=== PATIENT | male | born 1995 | race Caucasian/White ===

== ENCOUNTER 2020-08-28 10:23 | Emergency (ER) | payer OTHER ==
[~2020-08-28] VITALS: Ht 188 cm; Wt 73.8 kg
[2020-08-28 10:23] VITALS: BP 134/71
[2020-08-28 12:05] LABS: HEMATOCRIT 49.6 % (42.0-52.0); HEMOGLOBIN 17.8 g/dl (13.5-17.5); MEAN CORPUSCULAR HEMOGLOBIN 30.1 pg (27.0-33.0); MEAN CORPUSCULAR HGB CONC 35.9 g/dl (32.0-36.5); MEAN CORPUSCULAR VOLUME 83.9 fl (80.0-96.0); PLATELET COUNT, AUTOMATED 149 10^3/uL (150-450); RED BLOOD COUNT 5.91 10^6/uL (4.30-6.10); WHITE BLOOD COUNT 5.9 10^3/uL (4.0-10.0)
[2020-08-28 12:36] LABS: BLOOD UREA NITROGEN 9 MG/DL (7-18); CALCIUM LEVEL 9.4 MG/DL (8.5-10.1); CARBON DIOXIDE LEVEL 30 MEQ/L (21-32); CHLORIDE LEVEL 98 MEQ/L (98-107); CREATININE FOR GFR 0.86 MG/DL (0.70-1.30); GLOMERULAR FILTRATION RATE > 60.0 (>60); GLUCOSE, FASTING 90 MG/DL (70-100); POTASSIUM SERUM 4.1 MEQ/L (3.5-5.1); SODIUM LEVEL 133 MEQ/L (136-145)
[2020-08-28] MEDS ORDERED: ONDANSETRON 4 MG ORAL DISINTEGRATING TAB PO ONE (13:10)
[2020-08-28] MEDS ORDERED: IBUPROFEN 800 MG TAB PO ONE (13:10)
[2020-08-28 13:30] LABS: CK-MB VALUE MASS < 1.0 NG/ML (<3.6); CPK CREATINE PHOSPHOKINASE 221 U/L (39-308); MAGNESIUM LEVEL 2.5 MG/DL (1.8-2.4); MB/CK RELATIVE INDEX 0.45 (< OR =4); TROPONIN I 0.04 NG/ML (< 0.10)
[2020-08-28] MEDS ORDERED: DOXY1CAP62 PO (14:13)
[2020-08-30 15:17] LABS: Lyme Disease IgG Ab 18 kDa Ban Absent (.); Lyme Disease IgG Ab 23 kDa Ban Absent (.); Lyme Disease IgG Ab 28 kDa Ban Absent (.); Lyme Disease IgG Ab 30 kDa Ban Absent (.); Lyme Disease IgG Ab 39 kDa Ban Absent (.); Lyme Disease IgG Ab 41 kDa Ban Absent (.); Lyme Disease IgG Ab 45 kDa Ban Absent (.); Lyme Disease IgG Ab 58 kDa Ban Absent (.); Lyme Disease IgG Ab 66 kDa Ban Absent (.); Lyme Disease IgG Ab 93 kDa Ban Absent (.); Lyme Disease IgG West Blot Int Negative (.); Lyme Disease IgG/IgM Antibodie <0.91 ISR (0.00-0.90); Lyme Disease IgM Ab 23 kDa Ban Present (.); Lyme Disease IgM Ab 39 kDa Ban Absent (.); Lyme Disease IgM Ab 41 kDa Ban Absent (.); Lyme Disease IgM Ab Quantitati 1.26 index (0.00-0.79); Lyme Disease IgM West Blot Int Negative (.)
== END 2020-08-28 14:04 | disposition left against medical advice (07) ==
LOC: M ED 10:23
DX: A69.20 Lyme disease, unspecified (principal); F17.210 Nicotine dependence, cigarettes, uncomplicated; F12.20 Cannabis dependence, uncomplicated
CPT/HCPCS: 36415; 80048; 82550; 82553; 83735; 85027; 86617; 87040; 87798; 99282; Q0162